=== PATIENT | male | born 1990 | race Caucasian/White ===

== ENCOUNTER → 2019-07-30 | Outpatient (CLI) | payer BC ==
--- NOTE | 2019-07-30 08:58 | Diagnostic Imaging Report ---
INDICATION: Left knee pain. AP, oblique, and lateral views left knee are obtained. Previous fixation screw in the patella is noted with old patellar fracture deformity. There is no acute fracture visualized. There is no significant degenerative change. There is no overt joint effusion. 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 No acute appearing abnormality. Dictated by: Dictated on workstation # [id number]
== END ==
LOC: RAD FS 08:37
PROVIDERS: ATTEND Nurse Practitioner
DX: M25.562 Pain in left knee (principal); Z96.698 Presence of other orthopedic joint implants
CPT/HCPCS: 73562

== ENCOUNTER 2021-07-02 14:23 | Emergency (ER) | payer BC ==
[~2021-07-02] VITALS: Ht 185.4 cm; Wt 152.2 kg
--- NOTE | 2021-07-02 14:27 | ED General ---
General Stated Complaint: COVID+; TACHY History of Present Illness Date Seen by Provider: Jul 02, 2021 Time Seen by Provider: 14:27 Initial Comments 30-year-old male who tested positive for Covid 8-9 days ago. Patient symptoms started approximately 14 days ago. Patient presents today because he feels like "his heart is beating out of his chest" patient denies any shortness of breath. States that over the last 5 to 6 days he just felt like his heart really been racing. Denies fevers chills or other systemic complaints. Allergies and Home Medications Allergies Coded Allergies: morphine (Verified Allergy, Unknown, 07/02/21) Patient Home Medication List Home Medication List Reviewed: Yes Review of Systems Review of Systems Constitutional: No chills, No fever Respiratory: cough; No short of breath Cardiovascular: no symptoms reported, palpitations Musculoskeletal: no symptoms reported Skin: no symptoms reported Psychiatric/Neurological: No Symptoms Reported Hematologic/Lymphatic: No Symptoms Reported Immunological/Allergic: no symptoms reported Past Hensspd-Jmfgkk-Eofdhn Hx Past Medical History Reproductive Disorders: No Physical Exam Vital Signs Vital Signs - First Documented 07/02/21 14:30 Temp 37.2 Pulse 115 Resp 18 B/P (MAP) 135/99 (111) Pulse Ox 100 O2 Delivery Room Air Capillary Refill : Height, Weight, BMI Height: '" Weight: lbs. oz. kg; BMI Method: General Appearance: No Apparent Distress, WD/WN HEENT: PERRL/EOMI, TMs Normal Neck: Normal Inspection, Non Tender Respiratory: Lungs Clear, Normal Breath Sounds Cardiovascular: No Edema, Tachycardia Gastrointestinal: Non Tender, Soft Extremity: Normal Capillary Refill, Normal Inspection, Normal Range of Motion Neurologic/Psychiatric: Alert, Oriented x3, No Motor/Sensory Deficits Skin: Normal Color, Warm/Dry Focused Exam Lactate Level 07/02/21 14:40: Lactic Acid Level 1.63 Lactic Acid Level Laboratory Tests Test 07/02/21 14:40 Lactic Acid Level 1.63 MMOL/L (0.50-2.00) Progress/Results/Core Measures Suspected Sepsis SIRS Temperature: Pulse: Respiratory Rate: Laboratory Tests 07/02/21 14:40: White Blood Count 12.0H Blood Pressure / Mean: 07/02/21 14:40: Lactic Acid Level 1.63 Laboratory Tests 07/02/21 14:40: Creatinine 0.91, Platelet Count 269, Total Bilirubin 0.5 Results/Orders Lab Results Laboratory Tests Test 07/02/21 14:40 Range/Units White Blood Count 12.0 H 4.3-11.0 10^3/uL Red Blood Count 5.76 H 4.30-5.52 10^6/uL Hemoglobin 16.1 13.3-17.7 g/dL Hematocrit 47 40-54 % Mean Corpuscular Volume 82 80-99 fL Mean Corpuscular Hemoglobin 28 25-34 pg Mean Corpuscular Hemoglobin Concent 34 32-36 g/dL Red Cell Distribution Width 12.8 10.0-14.5 % Platelet Count 269 130-400 10^3/uL Mean Platelet Volume 10.6 9.0-12.2 fL Immature Granulocyte % (Auto) 0 % Neutrophils (%) (Auto) 55 42-75 % Lymphocytes (%) (Auto) 34 12-44 % Monocytes (%) (Auto) 7 0-12 % Eosinophils (%) (Auto) 4 0-10 % Basophils (%) (Auto) 0 0-10 % Neutrophils # (Auto) 6.6 1.8-7.8 X 10^3 Lymphocytes # (Auto) 4.1 H 1.0-4.0 X 10^3 Monocytes # (Auto) 0.8 0.0-1.0 X 10^3 Eosinophils # (Auto) 0.4 H 0.0-0.3 10^3/uL Basophils # (Auto) 0.0 0.0-0.1 10^3/uL Immature Granulocyte # (Auto) 0.0 0.0-0.1 10^3/uL D-Dimer 0.19 0.00-0.49 UG/ML Sodium Level 141 135-145 MMOL/L Potassium Level 3.8 3.6-5.0 MMOL/L Chloride Level 104 98-107 MMOL/L Carbon Dioxide Level 24 21-32 MMOL/L Anion Gap 13 5-14 MMOL/L Blood Urea Nitrogen 9 7-18 MG/DL Creatinine 0.91 0.60-1.30 MG/DL Estimat Glomerular Filtration Rate 99 BUN/Creatinine Ratio 10 Glucose Level 109 H 70-105 MG/DL Lactic Acid Level 1.63 0.50-2.00 MMOL/L Calcium Level 9.5 8.5-10.1 MG/DL Corrected Calcium 8.5-10.1 MG/DL Magnesium Level 1.8 1.6-2.4 MG/DL Total Bilirubin 0.5 0.1-1.0 MG/DL Aspartate Amino Transf (AST/SGOT) 32 5-34 U/L Alanine Aminotransferase (ALT/SGPT) 63 H 0-55 U/L Alkaline Phosphatase 63 40-136 U/L Troponin I < 0.30 <0.30 NG/ML C-Reactive Protein < 0.30 <0.50 MG/DL Total Protein 7.8 6.4-8.2 GM/DL Albumin 4.6 H 3.2-4.5 GM/DL My Orders Orders - ANDERSON,JERSON L DO Cbc With Automated Diff (07/02/21 14:32) Comprehensive Metabolic Panel (07/02/21 14:32) Lactic Acid Analyzer (07/02/21 14:32) Magnesium (07/02/21 14:32) Crp Fs (07/02/21 14:32) Troponin I Fs (07/02/21 14:32) Lactated Ringers (Lr 1000 Ml Iv Solution (07/02/21 14:32) Chest 1 View Ap/Pa Only (07/02/21 14:32) Ekg Tracing (07/02/21 14:32) Fibrin Degradation Products (07/02/21 14:32) Vital Signs/I&O 07/02/21 07/02/21 14:30 15:53 Temp 37.2 37.2 Pulse 115 98 Resp 18 18 B/P (MAP) 135/99 (111) 134/83 Pulse Ox 100 100 O2 Delivery Room Air Room Air Capillary Refill : Progress Note : Progress Note Patient with negative EKG, chest x-ray, troponin and D-dimer. Patient's symptoms likely related to's Covid diagnosis as he is recovering. Discussed with him the need to follow with primary care provider if he continues to have fast heart rates. Drink plenty of fluids. His heart rate did improve with some IV fluids. Patient stable and discharged ECG Initial ECG Impression Date: Jul 02, 2021 Initial ECG Impression Time: 14:30 Initial ECG Rate: 109 Comment sinus tachycardia, no acute changes Diagnostic Imaging Diagonstic Imaging: Xray Plain Films/CT/US/NM/MRI: chest Comments Date of Exam:07/02/21 CHEST 1 VIEW AP/PA ONLY Portable erect AP chest at 226h. INDICATION: COVID, tachycardia There are no prior studies available for comparison. The heart size is within normal limits. The lungs are clear. There is no sign of failure, pneumonia or a pleural effusion. The mediastinum is not widened. The osseous structures are intact. External cardiac monitoring electrodes are noted. IMPRESSION: There is no evidence for active disease. Departure Impression Primary Impression: COVID-19 Disposition: 01 HOME, SELF-CARE Condition: Stable Departure-Patient Inst. Referrals: IRMA DIAZ MD (PCP/Family) Primary Care Physician Patient Instructions: COVID-19 (DC) Add. Discharge Instructions: Drink plenty of fluids, aspirin and ibuprofen as needed for fever and body aches. Follow-up with your primary care provider if symptoms of not continue to improve over the next 3 to 4 days. JERSON ANDERSON DO Jul 02, 2021 14:27
[2021-07-02] MEDS ORDERED: LACTATED RINGERS 1,000 ML IV STA (14:32)
--- NOTE | 2021-07-02 14:50 | Diagnostic Imaging Report ---
Portable erect AP chest at 226h. INDICATION: COVID, tachycardia There are no prior studies available for comparison. The heart size is within normal limits. The lungs are clear. There is no sign of failure, pneumonia or a pleural effusion. The mediastinum is not widened. The osseous structures are intact. External cardiac monitoring electrodes are noted. IMPRESSION: There is no evidence for active disease. Dictated by: Dictated on workstation # [id number]
[2021-07-02 15:11] LABS: BASOPHILS % (AUTO) 0 % (0-10); EOSINOPHILS # (AUTO) 0.4 10^3/uL (0.0-0.3); EOSINOPHILS % (AUTO) 4 % (0-10); HEMATOCRIT 47 % (40-54); HEMOGLOBIN 16.1 g/dL (13.3-17.7); LYMPHOCYTES # (AUTO) 4.1 X 10^3 (1.0-4.0); LYMPHOCYTES % (AUTO) 34 % (12-44); MEAN CORPUSCULAR HEMOGLOBIN 28 pg (25-34); MEAN CORPUSCULAR HGB CONC 34 g/dL (32-36); MEAN CORPUSCULAR VOLUME 82 fL (80-99); MEAN PLATELET VOLUME 10.6 fL (9.0-12.2); MONOCYTES # (AUTO) 0.8 X 10^3 (0.0-1.0); MONOCYTES % (AUTO) 7 % (0-12); NEUTROPHILS # (AUTO) 6.6 X 10^3 (1.8-7.8); NEUTROPHILS % (AUTO) 55 % (42-75); PLATELET COUNT 269 10^3/uL (130-400)
[2021-07-02 15:26] LABS: CHLORIDE 104 MMOL/L (98-107); POTASSIUM 3.8 MMOL/L (3.6-5.0); SODIUM 141 MMOL/L (135-145)
[2021-07-02 15:27] LABS: ALANINE AMINOTRANSFERASE 63 U/L (0-55); ALBUMIN 4.6 GM/DL (3.2-4.5); ALKALINE PHOSPHATASE 63 U/L (40-136); BILIRUBIN,TOTAL 0.5 MG/DL (0.1-1.0); BUN/CREATININE RATIO 10; CALCIUM 9.5 MG/DL (8.5-10.1); CARBON DIOXIDE 24 MMOL/L (21-32); CREATININE SERUM 0.91 MG/DL (0.60-1.30); GFR ESTIMATED 99; GLUCOSE 109 MG/DL (70-105); MAGNESIUM 1.8 MG/DL (1.6-2.4); TOTAL PROTEIN 7.8 GM/DL (6.4-8.2)
[2021-07-02 15:53] VITALS: BP 134/83
== END 2021-07-02 15:51 | disposition home or self-care (01) ==
LOC: EDUNIT# 14:23 → ER FS 14:25
DX: U07.1 COVID-19 (principal)
CPT/HCPCS: 36415; 71045; 80053; 83605; 83735; 84484; 85025; 85379; 86141; 93005

== ENCOUNTER → 2022-01-07 | Outpatient (CLI) | payer BC ==
--- NOTE | 2022-01-07 11:12 | Diagnostic Imaging Report ---
Indication: Left knee pain. Time of Exam: 9:14 AM Multiple views of the left knee were obtained and compared with study from 07/30/2019. The partially threaded screw extends through the patella. No residual fracture line is seen. There is a well-corticated osseous density adjacent to the patella on the lateral side consistent with an ununited osteophyte or ununited fracture fragment. Medial and lateral compartments are well maintained. The articular surfaces are smooth. Trace joint fluid is noted. IMPRESSION: Postop changes, as described. No acute feature is detected. Dictated by: Dictated on workstation # [id number]
== END ==
LOC: RAD FS 08:55
PROVIDERS: ATTEND Nurse Practitioner
DX: M17.32 Unilateral post-traumatic osteoarthritis, left knee (principal)
CPT/HCPCS: 73562